=== PATIENT | female | born 1980 | race Caucasian/White ===

== ENCOUNTER → 2017-09-27 09:04 | Outpatient (CLI) | payer OTHER, SELFPAY ==
[2017-09-27 10:25] LABS: Rubella IgG 329.2 IU/mL
[2017-09-28 15:34] LABS: V-Zoster IgG (Immunity) 1615 index (Immune >165)
== END ==
PROVIDERS: Family Provider Family Medicine; PCP Family Medicine; Visit Provider Obstetrics & Gynecology Reproductive Endocrinology
DX: Z01.83 Encounter for blood typing (principal); Z11.59 Encounter for screening for other viral diseases
CPT/HCPCS: 36415; 86762; 86787; 86900

== ENCOUNTER → 2018-09-26 11:02 | Outpatient (CLI) | payer OTHER, SELFPAY ==
[2018-09-28 10:30] LABS: HPV APTIMA, High Risk Negative (Negative)
== END ==
PROVIDERS: Family Provider Family Medicine; PCP Family Medicine; Referring Provider Obstetrics & Gynecology; Visit Provider Obstetrics & Gynecology
DX: Z12.4 Encounter for screening for malignant neoplasm of cervix (principal)
CPT/HCPCS: 87624; 88175; G0145

== ENCOUNTER 2021-10-10 11:15 | Outpatient (CLI) | payer OTHER, SELFPAY ==
[2021-10-15 14:40] LABS: HPV APTIMA, High Risk Negative (Negative)
== END 2021-10-10 23:59 | disposition home or self-care (01) ==
PROVIDERS: PCP Family Medicine; Visit Provider Obstetrics & Gynecology
DX: Z12.4 Encounter for screening for malignant neoplasm of cervix (principal)
CPT/HCPCS: 87624; 88175; G0145